=== PATIENT | female | born 1945 | race Caucasian/White ===

== ENCOUNTER 2016-12-04 22:19 | Emergency (ER) | payer MEDICARE ==
[2016-12-05] MEDS ORDERED: METHYLPRED SOD SUCC 125 MG/2 ML VIAL ONE (01:42)
== END 2016-12-05 01:57 | disposition home or self-care (01) ==
LOC: ER 22:19
DX: L03.113 Cellulitis of right upper limb (principal); J20.9 Acute bronchitis, unspecified; M34.9 Systemic sclerosis, unspecified; I73.00 Raynaud's syndrome without gangrene; K21.9 Gastro-esophageal reflux disease without esophagitis; I34.1 Nonrheumatic mitral (valve) prolapse; Z85.3 Personal history of malignant neoplasm of breast; Z79.899 Other long term (current) drug therapy; K58.9 Irritable bowel syndrome, unspecified
CPT/HCPCS: 36415; 71020; 73110; 80053; 85025; 96372; 99284; J2930